=== PATIENT | male | born 1990 | race Caucasian/White ===

== ENCOUNTER 2017-07-23 04:07 | Emergency (ER) | payer OTHER ==
[2017-07-23 04:15] VITALS: PULSE 81; RESP 18; TEMP 97.9; O2SAT 98
[2017-07-23] MEDS ORDERED: TDAP Vaccine 0.5 mL Syr IM ONE (04:52)
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
== END 2017-07-23 06:36 | disposition home or self-care (01) ==
LOC: ED 04:07 → MERGE 04:07 → ED 06:36
DX: S50.812A Abrasion of left forearm, initial encounter (principal); S50.811A Abrasion of right forearm, initial encounter; Y08.89XA Assault by other specified means, initial encounter; Y92.238 Other place in hospital as the place of occurrence of the external cause; Y99.0 Civilian activity done for income or pay; Z23 Encounter for immunization

== ENCOUNTER 2018-05-03 23:46 | Emergency (ER) | payer BC ==
[2018-05-03 23:54] VITALS: BMI 24.4
[2018-05-03 23:58] VITALS: RESP 18; O2SAT 98
--- NOTE | 2018-05-04 00:05 | ED PDOC ---
Arrival/HPI - General Historian: Patient - History of Present Illness Narrative History of Present Illness (Text): 05/03/18 23:52 27yo male with no past medical history who present with 2weeks history of nonproductive cough. States he had positive PPD recently. Came to Emergency department for evaluation . Denies fever,chills, chest pain, shortness of breath, sick contact, travel, night sweat weight loss. <iMlagro Bustos Carlo - Last Filed: 05/04/18 00:17> Past Medical History - Provider Review Nursing Documentation Reviewed: Yes - Psychiatric Hx Substance Use: No <Milagro Bustos A - Last Filed: 05/04/18 00:17> Family/Social History - Physician Review Nursing Documentation Reviewed: Yes Family/Social History: Unknown Family HX Smoking Status: no Hx Alcohol Use: No Hx Substance Use: No <Milagro Bustos A - Last Filed: 05/04/18 00:17> Allergies/Home Meds <JuliMilagro A - Last Filed: 05/04/18 00:17> <Juan Mauricio - Last Filed: 05/04/18 05:50> Allergies/Adverse Reactions: Allergies No Known Allergies Allergy (Verified 05/03/18 23:58) Home Medications: Home Meds Medication Instructions Recorded Confirmed RX: No Known Home Med 07/23/17 05/03/18 Review of Systems - Physician Review All systems were reviewed & negative as marked: Yes - Review of Systems Constitutional: Normal Eyes: Normal ENT: Normal Respiratory: Cough Cardiovascular: Normal Gastrointestinal: Normal Genitourinary Male: Normal Musculoskeletal: Normal Skin: Normal Neurological: Normal Endocrine: Normal Hemo/Lymphatic: Normal Psychiatric: Normal <Milagro Bustos A - Last Filed: 05/04/18 00:17> Physical Exam Vital Signs Reviewed: Yes Temperature: Afebrile Blood Pressure: Normal Pulse: Regular Respiratory Rate: Normal Appearance: Positive for: Well-Appearing, Non-Toxic, Comfortable Pain Distress: None Mental Status: Positive for: Alert and Oriented X 3 - Systems Exam Head: Present: Atraumatic, Normocephalic Pupils: Present: PERRL Extroacular Muscles: Present: EOMI Conjunctiva: Present: Normal Mouth: Present: Moist Mucous Membranes Neck: Present: Normal Range of Motion Respiratory/Chest: Present: Clear to Auscultation, Good Air Exchange. No: Respiratory Distress, Accessory Muscle Use, Wheezes, Decreased Breath Sounds, Rales, Retracting, Rhonchi, Tachypneic Cardiovascular: Present: Regular Rate and Rhythm, Normal S1, S2. No: Murmurs Abdomen: No: Tenderness, Distention, Peritoneal Signs Back: Present: Normal Inspection Upper Extremity: Present: Normal Inspection. No: Cyanosis, Edema Lower Extremity: Present: Normal Inspection. No: Edema Neurological: Present: GCS=15, CN II-XII Intact, Speech Normal Skin: Present: Warm, Dry, Normal Color. No: Rashes Psychiatric: Present: Alert, Oriented x 3, Normal Insight, Normal Concentration <Milagro Bustos - Last Filed: 05/04/18 00:17> Vital Signs Temp Pulse Resp BP Pulse Ox 05/04/18 01:19 98.0 F 74 18 123/70 98 05/03/18 23:54 98.8 F 84 18 124/71 98 <Juan Mauricio - Last Filed: 05/04/18 05:50> Medical Decision Making ED Course and Treatment: 05/04/18 00:17 Chest xray NAD Result was DW the pt. DC home and referred to his PMD - RAD Interpretation Radiology Orders: 05/03/18 23:51 CHEST TWO VIEWS (PA/LAT) [RAD] Stat <Milagro Bustos - Last Filed: 05/04/18 00:17> - RAD Interpretation Radiology Orders: 05/03/18 23:51 CHEST TWO VIEWS (PA/LAT) [RAD] Stat <Juan Mauricio - Last Filed: 05/04/18 05:50> - PA / [employer] / Resident Statement / has reviewed & agrees with the documentation as recorded. <Juan Mauricio - Last Filed: 05/04/18 05:50> Disposition/Present on Arrival - Present on Arrival Any Indicators Present on Arrival: No History of DVT/PE: No History of Uncontrolled Diabetes: No Urinary Catheter: No History Surgical Site Infection Following: None - Disposition Have Diagnosis and Disposition been Completed?: Yes Disposition Time: 00:20 Patient Plan: Discharge <Milagro Bustos - Last Filed: 05/04/18 00:17> <Juan Mauricio - Last Filed: 05/04/18 05:50> - Disposition Diagnosis: Cough Disposition: HOME/ ROUTINE Condition: STABLE Discharge Instructions (ExitCare): Cough in Adults Additional Instructions: Follow up with your doctor Return to ED for any new symptoms Referrals: Lilly Rivera MD [Medical Doctor] - Follow up with primary
[2018-05-04 01:22] VITALS: BP 123/70; PULSE 74; TEMP 98
--- NOTE | 2018-05-04 09:48 | RAD ---
Date of service: 05/04/2018 HISTORY: Cough COMPARISON: No prior. TECHNIQUE: Chest PA and lateral FINDINGS: LINES AND TUBES: None. LUNG AND PLEURA: The lungs are well inflated and clear. There is mild peribronchial thickening and streaky opacities in the lungs. No pleural effusion or pneumothorax. HEART AND MEDIASTINUM: The heart is not enlarged. No aortic atherosclerotic calcification present. The hilar and mediastinal contours are within normal limits. SKELETAL STRUCTURES: The bony structures are within normal limits for the patient's age. VISUALIZED UPPER ABDOMEN: Normal. OTHER FINDINGS: None. IMPRESSION: Findings may represent reactive airway disease/nonspecific bronchitis. A preliminary report was provided by [employer].
== END 2018-05-04 01:22 | disposition home or self-care (01) ==
LOC: ED 23:46
DX: R05 Cough (principal)